=== PATIENT | female | born 1960 | race American Indian/Alaskan Native ===

== ENCOUNTER 2020-01-13 00:47 | Emergency (ER) | payer OTHER ==
[2020-01-13 01:56] VITALS: BP 118/71
[2020-01-13] MEDS ORDERED: diphenhydrAMINE 25 MG CAP PO ONE (03:10)
[2020-01-13] MEDS ORDERED: ACETAMINOPHEN 500 MG TAB PO ONE (03:10)
[2020-01-13] MEDS ORDERED: dexAMETHasone 20 MG/5 ML VIAL IM ONE (03:10)
[2020-01-13] MEDS ORDERED: METOCLOPRAMIDE 10 MG TAB PO ONE (03:10)
[2020-01-13] MEDS ORDERED: IBUPROFEN 600 MG TAB PO ONE ×2 (03:42→03:44)
--- NOTE | 2020-01-13 03:42 | Emergency Department Report ---
ED Headache HPI - General Chief Complaint: Headache Stated Complaint: MIGRAINE HEADACHE Time Seen by Provider: 01/13/20 03:09 - History of Present Illness Initial Comments: Ms. Lopez is a 59-year-old -[place] female who presents for frontal headache x2 days. She has a history of migraine headaches same location. States this is usual course for headache for her. Patient states she is followed by [facility] physician and she gets morphine in the ED when she has a migraine headache. I have advised her that she would not be getting morphine tonight. Instead will receive NSAIDs and Benadryl with prednisone. Patient denies fall injury or trauma., There is no nausea vomiting, no photophobia. Patient is alert oriented x3 and ambulatory with steady gait patient with no acute distress. Timing/Duration: 24 hours Quality: moderate Head Injury Location: frontal Recent Head Trauma: occasional headaches Associated Symptoms: denies symptoms Allergies/Adverse Reactions: Allergies No Known Allergies Allergy (Verified 01/13/20 04:00) Home Medications: Ambulatory Orders Ibuprofen [Motrin 600 MG tab] 600 mg PO Q8H PRN #30 tablet 01/13/20 diphenhydrAMINE [Benadryl CAP] 25 mg PO Q8HR PRN #30 capsule 01/13/20 ED Review of Systems ROS: Stated complaint: MIGRAINE HEADACHE Other details as noted in HPI Constitutional: denies: chills, fever Eyes: denies: eye pain, eye discharge, vision change ENT: denies: ear pain, throat pain Respiratory: denies: cough, shortness of breath, wheezing Cardiovascular: denies: chest pain, palpitations Endocrine: no symptoms reported Gastrointestinal: denies: abdominal pain, nausea, diarrhea Genitourinary: denies: urgency, dysuria, discharge Musculoskeletal: denies: back pain, joint swelling, arthralgia Skin: denies: rash, lesions Neurological: headache. denies: weakness, numbness, paresthesias, confusion, vertigo Psychiatric: denies: anxiety, depression Hematological/Lymphatic: denies: easy bleeding, easy bruising ED Past Medical Hx - Past Medical History Hx Diabetes: Yes Hx Headaches / Migraines: Yes Hx Psychiatric Treatment: Yes (depression) Additional medical history: "crack in skull" - Surgical History Hx Cholecystectomy: Yes - Social History Smoking Status: Current Every Day Smoker Substance Use Type: None - Medications Home Medications: Home Medications Medication Instructions Recorded Confirmed Last Taken Type Ibuprofen [Motrin 600 MG tab] 600 mg PO Q8H PRN #30 tablet 01/13/20 Unknown Rx diphenhydrAMINE [Benadryl CAP] 25 mg PO Q8HR PRN #30 capsule 01/13/20 Unknown Rx ED Physical Exam - General Limitations: No Limitations General appearance: alert, in no apparent distress - Head Head exam: Present: atraumatic, normocephalic - Eye Eye exam: Present: normal appearance, EOMI Pupils: Present: normal accommodation - ENT ENT exam: Present: normal orophraynx, mucous membranes moist, TM's normal bilaterally, normal external ear exam - Neck Neck exam: Present: normal inspection, full ROM. Absent: tenderness, meningismus, lymphadenopathy, thyromegaly - Respiratory Respiratory exam: Present: normal lung sounds bilaterally. Absent: respiratory distress, wheezes, stridor, chest wall tenderness - Cardiovascular Cardiovascular Exam: Present: regular rate, normal rhythm, normal heart sounds. Absent: systolic murmur, diastolic murmur, rubs, gallop - GI/Abdominal GI/Abdominal exam: Present: soft, normal bowel sounds. Absent: distended, tenderness, bruit, hernia - Rectal Rectal exam: Present: deferred - Extremities Exam Extremities exam: Present: normal inspection, full ROM, normal capillary refill. Absent: tenderness - Back Exam Back exam: Present: normal inspection, full ROM, CVA tenderness (R). Absent: tenderness, CVA tenderness (L), muscle spasm, paraspinal tenderness, vertebral tenderness, rash noted - Neurological Exam Neurological exam: Present: alert, oriented X3, CN II-XII intact, reflexes normal. Absent: motor sensory deficit - Psychiatric Psychiatric exam: Present: normal affect, normal mood - Skin Skin exam: Present: warm, dry, intact, normal color. Absent: rash ED Course Vital Signs 01/13/20 00:50 Temperature 98.9 F Pulse Rate 89 Respiratory 18 Rate Blood Pressure 118/71 O2 Sat by Pulse 100 Oximetry ED Medical Decision Making - Medical Decision Making th is is a acute headach in same location, intensity, and duration and headache off pas. headache is now improved pt will be dc'd to home in stable condition. Critical care attestation.: If time is entered above; I have spent that time in minutes in the direct care of this critically ill patient, excluding procedure time. ED Disposition Clinical Impression: Headache Qualifiers: Headache type: unspecified Headache chronicity pattern: acute headache Intractability: not intractable Qualified Code(s): R51 - Headache Disposition: DC-01 TO HOME OR SELFCARE Is pt being admited?: No Does the pt Need Aspirin: No Condition: Stable Instructions: Acute Headache (ED) Prescriptions: diphenhydrAMINE [Benadryl CAP] 25 mg PO Q8HR PRN #30 capsule PRN Reason: Headache Ibuprofen [Motrin 600 MG tab] 600 mg PO Q8H PRN #30 tablet PRN Reason: Pain Forms: Work/School Release Form(ED) Time of Disposition: 03:53
== END 2020-01-13 04:14 | disposition home or self-care (01) ==
LOC: ED 00:47
DX: R51 Headache (principal); E11.9 Type 2 diabetes mellitus without complications; F32.9 Major depressive disorder, single episode, unspecified; F17.200 Nicotine dependence, unspecified, uncomplicated; Z90.49 Acquired absence of other specified parts of digestive tract; Z79.899 Other long term (current) drug therapy
CPT/HCPCS: 99282